=== PATIENT | male | born 1990 | race Caucasian/White ===

== ENCOUNTER 2022-03-18 20:18 | Emergency (ER) | payer BC, SELFPAY ==
[2022-03-18 20:20] VITALS: BP 152/98; PULSE 117; RESP 16; RESP 18; TEMP 37.1; O2SAT 100; BMI 30.1
--- NOTE | 2022-03-18 20:54 | EKG12_ITS ---
Test Reason : CP Blood Pressure : / mmHG Vent. Rate : 108 BPM Atrial Rate : 108 BPM P-R Int : 150 ms QRS Dur : 086 ms QT Int : 320 ms P-R-T Axes : 065 072 024 degrees QTc Int : 428 ms Sinus tachycardia Otherwise normal ECG Confirmed by ALIX QUEZADA, SARAH ([id number]), makeup editor CHARLY TAFOYA ([id number]) on 03/21/2022 11:10:17 AM Referred By: AUSTIN Confirmed By:SARAH THOMSON MD
[2022-03-18 21:09] LABS: Absolute Lymphocyte Count 1.51 X10^3/uL (0.83-4.51); Absolute Neutrophil Count 5.7 X10^3/uL (2.0-7.7); Basophil# 0.04 X10^3/uL; Basophil% 0.5 % (0-1); Hematocrit 46.3 % (40-54); Hemoglobin 15.4 g/dL (13.0-16.5); Lymphocyte # 1.51 X10^3/ul (0.83-4.51); Lymphocyte % 19.3 % (19-41); Mean Corp Hgb Conc 33.3 g/dL (32-36); Mean Corpuscular Hgb 28.7 pg (27.0-32.0); Mean Corpuscular Volume 86.2 fL (80-94); Mean Platelet Vol. 10.5 fl (6.2-12.0); Monocyte# 0.52 X10^3/uL; Monocyte% 6.6 % (0-10); NRBC Flagged by Analyzer 0 % (0-5); Neutrophil # 5.73 X10^3/uL (2.7-7.7); Neutrophil % 73.2 % (47-70); Platelet Count 273 K/mm3 (150-450); RBC Distribution Width CV 12.5 % (11.6-14.6); RBC Distribution Width SD 39.3 fl (35.1-43.9); Red Blood Count 5.37 M/mm3 (4.6-6.2); White Blood Count 7.8 K/mm3 (4.4-11.0)
--- NOTE | 2022-03-18 21:21 | RAD_ITS ---
STUDY: X-RAY CHEST REASON FOR EXAM: Male, 31 years old. Chest pain and pressure beginning 2 days ago. Pain began radiating to the shoulder. TECHNIQUE: PA and lateral views of the chest. COMPARISON: None. FINDINGS: The lungs are clear and expanded. There is no demonstrated pleural abnormality. Normal size heart. Normal mediastinum and cassie. Normal visualized pulmonary arteries. Normal visualized aortic arch and descending thoracic aorta. Normal visualized thoracic spine. Normal visualized ribs, clavicles, and shoulders. There is no demonstrated abnormality of the visualized soft tissue structures of the upper abdomen. RAD/Chest PA and Lateral IMPRESSION: No acute cardiopulmonary disease. Electronically Signed: Clive Chavez DO at 21:44 EDT ,
--- NOTE | 2022-03-18 21:24 | EDS_ITS ---
HPI History of Present Illness Chief Complaint: Chest Pain Detail of Chief Complaint: Midsternal chest pressure Informant: patient Onset/Context/Timing Onset: Days (Onset Monday) Activity at onset: sudden Timing: Continuous Quality: Positive for Pressure Location: Substernal Current Severity: Mild Maximum Severity: Moderate Worsened By: Nothing Relieved By: Nothing Associated Symptoms: Positive for Dyspnea (At onset not presently) and - (Today he complains of left shoulder pain.); Negative for Nausea, Vomiting, Diaphoresis, Cough, Fever, Lightheadedness, Acid Reflux or Palpitations Narrative Narrative: Patient is a 31-year-old male with no past medical history and no significant family history of coronary disease. He states his mother in her 60s due to heart disease complicated by alcoholism. She did not have an LA. He denies fever, chills night sweats. He denies history of VTE or risk factors. He denies leg pain, swelling discoloration. He denies history of hiatal hernia, reflux or peptic ulcer disease. He denies black or maroon-colored stool. He denies cough. He denies pleuritic chest pain. He denies upper respiratory infectious symptoms. Prior Similar Symptoms: No Recent Illness/Hospitalization: No CVD Risk Factors: Negative for Hypertension, Diabetes, Hypercholesterolemia, Family History 1' </=55 or Smoking PE Risk Factors: Negative for Recent Travel/Surgery, Recent Immobilization, Prior DVT or PE, Cancer or OCP + Smoking + >/=35 TAD Risk Factors: Negative for Marfan's Syndrome, Hypertension or Family History PFSH PFSH Medical History no medical history no medical history Allergy/AdvReac Type Severity Reaction Status Date / Time No Known Allergies Allergy Verified 03/18/22 20:32 Surgical History no surgical history no surgical history Social History (Updated 03/18/22 @ 21:[address] Fred Keita MD) Smoking Status: Never smoker alcohol intake: current alcohol intake frequency: a few times a month substance use type: does not use ROS ROS ED Constitutional Constitutional ED: Denies chills, fever(s), subjective, sweats or weight loss Eyes Eyes: Reports none; Denies blurry vision, change in vision or diplopia ENT ENT ED: Denies ear pain, rhinorrhea or sore throat Cardiovascular Cardiovascular: Reports as per HPI; Denies orthopnea or paroxysmal nocturnal dyspnea Respiratory/Chest Respiratory/Chest: Reports dyspnea; Denies cough, dyspnea on exertion, orthopnea, paroxysmal nocturnal dyspnea or sputum Gastrointestinal Gastrointestinal: Denies abdominal pain, constipation, diarrhea, melena, nausea or vomiting Genitourinary Genitourinary ED: Denies dysuria, hematuria or urinary frequency Musculoskeletal Musculoskeletal: Denies arthralgias, back pain, myalgias or neck pain Integumentary Denies Abrasions or rash Neurologic Neurologic: Denies headache(s), paresthesias or weakness Psychiatric Psychiatric: Reports anxiety; Denies depression Endocrine Endocrinology: Denies cold intolerance or heat intolerance Hematologic/Lymphatic Hematologic/Lymphatic: Denies easy bleeding or easy bruising EXAM Physical Exam Const Vital Signs: 03/18/22 20:20 03/18/22 20:20 03/18/22 20:29 Temperature 98.7 F 98.7 F Temperature Source Temporal Temporal Pulse Rate 117 H 117 H Respiratory Rate 18 16 Respiratory Effort Normal Blood Pressure 152/98 H 152/98 H Blood Pressure Mean 116 116 Pulse Ox 100 100 Oxygen Delivery Method Room Air Room Air Positive well nourished, well developed and obese; Negative for cachectic, contractures or unkempt General Appearance ED: well developed and NAD; Negative for unkempt, cachectic, contractures or pallor Nutritional Appearance: obese; Negative for cachectic HEENT Reports TM's clear and moist mucous membranes HEENT Narrative: Nares patent. Uvula midline. No deviation tongue or protrusion. No erythema or exudate. normocephalic and atraumatic Tympanic Membrane ED: Yes TM's clear Eyes PERRL and EOMs intact bilaterally General Eye ED: Negative for pale conjunctiva or scleral icterus Neck no lymphadenopathy, supple and no JVD Resp normal respiratory effort and clear to auscultation bilaterally Cardio regular rate, regular rhythm, S1 normal heart sound, S2 normal heart sound and no murmurs GI normal to inspection, nondistended, normoactive bowel sounds, soft to palpation, non-tender and non-distended Palpation: Negative for splenomegaly or mass Back/Spine no CVA tenderness Extremity normal to inspection Extremity Narrative: There is no asymmetry, swelling, discoloration, leg vein distention, palpable cords or tenderness along the distribution of the deep venous system. Neuro oriented x3, CN's II-XII intact bilaterally and no sensory deficits noted Sensorium / Orientation: awake and alert Psych mental status grossly normal Appearance: Negative for unkempt Skin no rashes or lesions noted and no wounds General Skin Exam: Negative for jaundice or pallor MDM MDM MDM Narrative Medical decision making narrative: Patient with atypical chest pain. Will obtain EKG to evaluate for any ischemic changes or dysrhythmia. CBC to rule out anemia. Basic metabolic panel to assess renal function and high-sensitivity troponin since he has had pain for approximately 48 hours. Chest x-ray was obtained to determine a pulmonary etiology for his chest discomfort as well as GI i.e. hiatal hernia. Lab Data Attestation: I reviewed the patient's lab results. Lab results narrative: CBC is unremarkable. Basic metabolic panel is unremarkable. Troponin with 48 hours of pain is less than 3 therefore no further testing is needed since negative predictive value is 100%. Labs: Laboratory Results - last 24 hr 03/18/22 03/18/22 03/18/22 20:40 20:40 20:40 WBC 7.8 RBC 5.37 Hgb 15.4 Hct 46.3 MCV 86.2 MCH 28.7 MCHC 33.3 RDW Std Deviation 39.3 RDW Coeff of Danny 12.5 Plt Count 273 MPV 10.5 Immature Gran % (Auto) 0.400 Neut % (Auto) 73.2 H Lymph % (Auto) 19.3 [place] % (Auto) 6.6 Eos % (Auto) 0.0 Baso % (Auto) 0.5 Absolute Neuts (auto) 5.7 Absolute Lymphs (auto) 1.51 Nucleated RBC % 0 Sodium 140 Potassium 3.5 Chloride 104 Carbon Dioxide 29.0 Anion Gap 7 BUN 17 Creatinine 1.16 Estim Creat Clear Calc 96.14 Est GFR (MDRD) Af Amer 95 Est GFR (MDRD) Non-Af 78 BUN/Creatinine Ratio 14.7 Glucose 107 H Calcium 10.4 H Troponin I High Sens Cancelled < 3 L Radiography Chest X-Ray - ED: 2 View and Read by ED Physician (Interpreted by me at 2138 as negative. Cardiac silhouette and size normal. Lung parenchyma normal. Perihilar region normal. Osseous structures normal.) Diagnostic Testing: Clinical Impression(s) from Imaging Studies Chest X-Ray 03/18/22 21:21 IMPRESSION: No acute cardiopulmonary disease. Electronically Signed: Clive Chavez DO at 21:44 EDT Reading Location ID and State: [address] [place] [address] Tel [phone], Service support , EKG Initial EKG: Interpretation: Sinus Tachycardia (Other than the tachycardia EKG is normal. Ventricular rate is 108. HI intervals 150 ms. QRS duration 86 ms. QT duration 320 ms. Lena normal.) Discharge Plan Triage Chief Complaint: Chest Pain ED Provider: Fred Keita Dx/Rx/DC Orders Clinical Impression: Chest pressure Primary Care Provider: Gagan Haq Referrals: Gagan Haq MD [Primary Care Provider] - 3-5 Days if not improving Disposition Disposition: Home, Self Care
[2022-03-18 21:28] LABS: Anion Gap 7 (5-15); BUN 17 mg/dL (7-18); BUN/Creat Ratio 14.7 RATIO (10-20); Calcium,Total 10.4 mg/dL (8.5-10.1); Chloride 104 mmol/L (98-107); Creatinine, Serum 1.16 mg/dL (0.70-1.30); EST Glomerular Filtration Rate 78 mL/min (>60); Est Glom Filt Rate - Afr Amer 95 mL/min (>60); Estimated Creatinine Clearance 96.14 ml/min; Glucose 107 mg/dL (74-106); Potassium 3.5 mmol/L (3.5-5.1); Sodium Level 140 mmol/L (136-145)
[2022-03-18 21:35] LABS: Troponin-I HS (w/2H Reflex) < 3 pg/mL (3.0-78.0)
[2022-03-18 21:52] VITALS: BP 136/80; PULSE 89; RESP 14; O2SAT 98
[2022-03-18 23:06] LABS: Reflex Troponin-HS? (from REC) Y
== END 2022-03-18 22:08 | disposition home or self-care (01) ==
PROVIDERS: Emergency Provider Emergency Medicine; PCP Family Medicine; Visit Provider Emergency Medicine
DX: R07.89 Other chest pain (principal); M25.512 Pain in left shoulder; E66.9 Obesity, unspecified
CPT/HCPCS: 71046; 80048; 84484; 85025; 93005; 99283; A4216

== ENCOUNTER → 2022-06-16 | Outpatient (CLI) | payer BC, SELFPAY ==
[2022-06-16 12:16] LABS: Absolute Lymphocyte Count 1.46 X10^3/uL (0.83-4.51); Absolute Neutrophil Count 4.1 X10^3/uL (2.0-7.7); Basophil# 0.04 X10^3/uL; Basophil% 0.7 % (0-1); Eosinophil# 0.04 X10^3/uL; Eosinophils% 0.7 % (0-5); Hematocrit 48.1 % (40-54); Lymphocyte # 1.46 X10^3/ul (0.83-4.51); Mean Corp Hgb Conc 33.3 g/dL (32-36); Mean Corpuscular Volume 87.1 fL (80-94); Mean Platelet Vol. 10.3 fl (6.2-12.0); Monocyte# 0.48 X10^3/uL; Monocyte% 7.9 % (0-10); NRBC Flagged by Analyzer 0 % (0-5); Neutrophil # 4.05 X10^3/uL (2.7-7.7); Neutrophil % 66.4 % (47-70); Platelet Count 256 K/mm3 (150-450); RBC Distribution Width CV 12.7 % (11.6-14.6); RBC Distribution Width SD 40.4 fl (35.1-43.9); Red Blood Count 5.52 M/mm3 (4.6-6.2); White Blood Count 6.1 K/mm3 (4.4-11.0)
[2022-06-16 12:48] LABS: Vitamin B12 497 pg/mL (211-911); Vitamin D,25 Hydroxy 23.8 ng/mL
[2022-06-16 13:04] LABS: ALB/GLOB Ratio 1.5 RATIO (0.9-2.4); AST(SGOT) 12 U/L (15-37); Alanine Aminotransfer ALT/SGPT 18 U/L (16-61); Albumin, Serum 4.6 g/dL (3.2-5.0); Alkaline Phosphatase 43 U/L (45-117); Anion Gap 8 (5-15); BUN 15 mg/dL (7-18); BUN/Creat Ratio 14.3 RATIO (10-20); Calcium,Total 9.5 mg/dL (8.5-10.1); Chloride 104 mmol/L (98-107); Creatinine, Serum 1.05 mg/dL (0.70-1.30); EST Glomerular Filtration Rate 88 mL/min (>60); Est Glom Filt Rate - Afr Amer 106 mL/min (>60); Globulin 3.1 g/dL (2.2-4.2); Glucose 99 mg/dL (74-106); Magnesium 2.2 mg/dL (1.6-2.6); Potassium 3.9 mmol/L (3.5-5.1); Protein, Total 7.7 g/dL (6.4-8.2); Sodium Level 140 mmol/L (136-145); Thyroid Stim Hormone (TSH) 1.05 uIU/mL (0.358-3.74)
== END | disposition home or self-care (01) ==
LOC: MFPLAB 11:06
PROVIDERS: Family Medicine; PCP Family Medicine; Referring Provider Family Medicine; Visit Provider Family Medicine
DX: R53.83 Other fatigue (principal); R03.0 Elevated blood-pressure reading, without diagnosis of hypertension
CPT/HCPCS: 36415; 80053; 82306; 82607; 83735; 84439; 84443; 85025

== ENCOUNTER → 2022-06-24 | Outpatient (CLI) | payer BC, SELFPAY ==
[2022-06-24 18:17] LABS: AST(SGOT) 8 U/L (15-37); Alanine Aminotransfer ALT/SGPT 16 U/L (16-61); Albumin, Serum 4.7 g/dL (3.2-5.0); Alkaline Phosphatase 45 U/L (45-117); Bilirubin, Direct 0.26 mg/dL (0.00-0.30); Globulin 3.2 g/dL (2.2-4.2); Protein, Total 7.9 g/dL (6.4-8.2)
== END | disposition home or self-care (01) ==
LOC: MFPLAB 13:54
PROVIDERS: PCP Family Medicine; Visit Provider Family Medicine
DX: R17 Unspecified jaundice (principal)
CPT/HCPCS: 36415; 80076

== ENCOUNTER → 2022-09-22 | Outpatient (CLI) | payer BC, SELFPAY ==
[2022-09-22 18:15] LABS: AST(SGOT) 12 U/L (15-37); Alanine Aminotransfer ALT/SGPT 23 U/L (16-61); Albumin, Serum 4.3 g/dL (3.2-5.0); Alkaline Phosphatase 45 U/L (45-117); Bilirubin, Direct 0.27 mg/dL (0.00-0.30); Cholesterol 247 mg/dL (200); Globulin 3.5 g/dL (2.2-4.2); High Density Lipoprotein 50 mg/dL; Protein, Total 7.8 g/dL (6.4-8.2); Triglycerides 123 mg/dL; Very Low Density Lipoprotein 25 mg/dL (5-40)
== END | disposition home or self-care (01) ==
PROVIDERS: PCP Family Medicine; Referring Provider Family Medicine; Visit Provider Internal Medicine Cardiovascular Disease
DX: E78.00 Pure hypercholesterolemia, unspecified (principal); R07.9 Chest pain, unspecified; Z82.49 Family history of ischemic heart disease and other diseases of the circulatory system
CPT/HCPCS: 36415; 80061; 80076

== ENCOUNTER → 2022-10-03 | Outpatient (CLI) | payer BC, SELFPAY ==
--- NOTE | 2022-10-03 12:12 | ECHOD_ITS ---
Reason For Study: CHEST PAIN Procedure This was a 2D Doppler, Color Flow transthoracic echocardiogram. Exam performed in department. Left Ventricle Normal LV size. Left ventricular systolic function is normal. The estimated ejection fraction is 60 %. Stage 1 diastolic dysfunction. No regional wall motion abnormalities noted. Right Ventricle Normal RV size. Normal systolic function. Atria Normal left atrium. Normal right atrium. Mitral Valve Normal mitral valve. Tricuspid Valve Normal tricuspid valve. Aortic Valve Normal aortic valve. Trisinus/trileaflet aortic valve. Pulmonic Valve Normal pulmonic valve. Great Vessels Normal aortic root. The pulmonary artery is normal size. Normal inferior vena cava. Pericardium/Pleural No pericardial effusion. MMode/2D Measurements & Calculations LVIDd: 4.8 cm IVSd: 0.67 cm Ao root diam: 2.9 cm LVIDs: 3.0 cm LVPWd: 0.74 cm RVDd: 3.6 cm FS: 37.1 % LAV(MOD-bp): 28.2 ml LVAd ap4: 31.1 cm2 SV(MOD-sp4): 57.1 ml LAV(MOD-bp) Indexed: 13.5 ml/m2 LVLd ap4: 8.9 cm LAV(MOD-sp2): 28.9 ml EDV(MOD-sp4): 88.3 ml LAV(MOD-sp4): 25.2 ml EDV(sp4-el): 92.2 ml LVAs ap4: 15.8 cm2 LVLs ap4: 7.0 cm ESV(MOD-sp4): 31.2 ml ESV(sp4-el): 30.4 ml EF(MOD-sp4): 64.7 % EF(sp4-el): 67.1 % SV(sp4-el): 61.8 ml LA A4 area: 11.8 cm2 LA dimension(2D): 3.3 cm RA A4 area: 11.3 cm2 Time Measurements MV dec time: 0.12 sec Doppler Measurements & Calculations MV E max ck: 98.9 cm/sec Lat Peak E' Ck: 22.3 cm/sec Med Peak E' Ck: 15.4 cm/sec MV A max ck: 101.9 cm/sec E/E' lat: 4.4 E/E' med: 6.4 MV E/A: 0.97 Ao V2 max: 147.6 cm/sec LV V1 max: 136.4 cm/sec PA V2 max: 135.3 cm/sec Ao max P.7 mmHg LV V1 max P.4 mmHg ECHO/Echo Complete Interpretation Summary Normal LV size. Left ventricular systolic function is normal. The estimated ejection fraction is 60 %. Stage 1 diastolic dysfunction. Ordering Physician: Gagan Arango Referring Physician: NASH RONQUILLO Performed By: Amelia Olson, RDCS
--- NOTE | 2022-10-03 17:48 | STRESSREP ---
Stress Test Report Exercise stress test. 32-year-old man with a history of chest pain Stress protocol: Resting EKG demonstrates normal sinus rhythm with a rate of 70 bpm resting blood pressure is 132/82 mmHg. The patient exercised according to the regular Leonard protocol for a total duration of 12 minutes and 30 seconds completing 30 seconds into stage V of the Leonard protocol and attaining a maximum heart rate of 200 bpm which was 105% of maximum predicted heart rate; the maximum workload was 15.3 metabolic equivalents. At rest there were no ST or T wave changes noted to suggest ischemia and at peak exercise upsloping ST changes only were noted which did not meet the criteria for ischemia. No clinical angina was noted the test was terminated due to the target heart rate being achieved/fatigue. The peak blood pressure was 170/80 mmHg. Rate-pressure product was 30,100. Conclusion: Exercise stress test with no EKG criteria for ischemia at a high workload. Excellent functional aerobic capacity.
== END | disposition home or self-care (01) ==
PROVIDERS: PCP Family Medicine; Visit Provider Internal Medicine Cardiovascular Disease
DX: R07.9 Chest pain, unspecified (principal); Z82.49 Family history of ischemic heart disease and other diseases of the circulatory system
CPT/HCPCS: 93017; 93306

== ENCOUNTER → 2023-01-11 | Outpatient (CLI) | payer BC, SELFPAY ==
[2023-01-11 17:46] LABS: Absolute Lymphocyte Count 1.69 X10^3/uL (0.83-4.51); Absolute Neutrophil Count 4.1 X10^3/uL (2.0-7.7); Basophil# 0.07 X10^3/uL; Basophil% 1.1 % (0-1); Eosinophil# 0.06 X10^3/uL; Eosinophils% 0.9 % (0-5); Hematocrit 44.9 % (40-54); Hemoglobin 15.1 g/dL (13.0-16.5); Lymphocyte # 1.69 X10^3/ul (0.83-4.51); Lymphocyte % 26.4 % (19-41); Mean Corp Hgb Conc 33.6 g/dL (32-36); Mean Corpuscular Hgb 28.8 pg (27.0-32.0); Mean Corpuscular Volume 85.7 fL (80-94); Mean Platelet Vol. 10.8 fl (6.2-12.0); Monocyte# 0.49 X10^3/uL; Monocyte% 7.7 % (0-10); NRBC Flagged by Analyzer 0 % (0-5); Neutrophil # 4.06 X10^3/uL (2.7-7.7); Neutrophil % 63.6 % (47-70); Platelet Count 257 K/mm3 (150-450); RBC Distribution Width CV 12.5 % (11.6-14.6); RBC Distribution Width SD 38.9 fl (35.1-43.9); Red Blood Count 5.24 M/mm3 (4.6-6.2); White Blood Count 6.4 K/mm3 (4.4-11.0)
[2023-01-11 18:20] LABS: ALB/GLOB Ratio 1.1 RATIO (0.9-2.4); AST(SGOT) 15 U/L (15-37); Alanine Aminotransfer ALT/SGPT 32 U/L (16-61); Albumin, Serum 4.2 g/dL (3.2-5.0); Alkaline Phosphatase 53 U/L (45-117); Anion Gap 6 (5-15); BUN 17 mg/dL (7-18); BUN/Creat Ratio 12.1 RATIO (10-20); Calcium,Total 9.2 mg/dL (8.5-10.1); Chloride 108 mmol/L (98-107); Cholesterol 175 mg/dL (200); EST Glomerular Filtration Rate 63 mL/min (>60); Est Glom Filt Rate - Afr Amer 76 mL/min (>60); Globulin 3.7 g/dL (2.2-4.2); Glucose 79 mg/dL (74-106); High Density Lipoprotein 43 mg/dL; Potassium 3.7 mmol/L (3.5-5.1); Protein, Total 7.9 g/dL (6.4-8.2); Sodium Level 141 mmol/L (136-145); Triglycerides 307 mg/dL; Very Low Density Lipoprotein 61 mg/dL (5-40)
== END | disposition home or self-care (01) ==
LOC: MFPLAB 15:37
PROVIDERS: PCP Family Medicine; Visit Provider Family Medicine
DX: E78.5 Hyperlipidemia, unspecified (principal)
CPT/HCPCS: 36415; 80053; 80061; 85025

== ENCOUNTER → 2023-02-09 | Outpatient (CLI) | payer BC, SELFPAY ==
[2023-02-09 18:18] LABS: Absolute Neutrophil Count 4.9 X10^3/uL (2.0-7.7); Basophil# 0.06 X10^3/uL; Basophil% 0.9 % (0-1); Eosinophil# 0.07 X10^3/uL; Hematocrit 45.3 % (40-54); Hemoglobin 15.2 g/dL (13.0-16.5); Lymphocyte % 21.3 % (19-41); Mean Corp Hgb Conc 33.6 g/dL (32-36); Mean Corpuscular Hgb 28.8 pg (27.0-32.0); Mean Platelet Vol. 12.2 fl (6.2-12.0); Monocyte# 0.51 X10^3/uL; Monocyte% 7.3 % (0-10); NRBC Flagged by Analyzer 0 % (0-5); Neutrophil # 4.87 X10^3/uL (2.7-7.7); Neutrophil % 69.2 % (47-70); Platelet Count 277 K/mm3 (150-450); RBC Distribution Width CV 12.7 % (11.6-14.6); RBC Distribution Width SD 39.9 fl (35.1-43.9); Red Blood Count 5.27 M/mm3 (4.6-6.2)
[2023-02-09 18:49] LABS: ALB/GLOB Ratio 1.1 RATIO (0.9-2.4); AST(SGOT) 16 U/L (15-37); Alanine Aminotransfer ALT/SGPT 32 U/L (16-61); Albumin, Serum 4.2 g/dL (3.2-5.0); Alkaline Phosphatase 52 U/L (45-117); Anion Gap 7 (5-15); BUN 14 mg/dL (7-18); BUN/Creat Ratio 13.3 RATIO (10-20); Calcium,Total 9.1 mg/dL (8.5-10.1); Chloride 108 mmol/L (98-107); Cholesterol 153 mg/dL (200); Creatinine, Serum 1.05 mg/dL (0.70-1.30); EST Glomerular Filtration Rate 87 mL/min (>60); Est Glom Filt Rate - Afr Amer 106 mL/min (>60); Globulin 3.7 g/dL (2.2-4.2); Glucose 101 mg/dL (74-106); High Density Lipoprotein 44 mg/dL; Potassium 3.8 mmol/L (3.5-5.1); Protein, Total 7.9 g/dL (6.4-8.2); Sodium Level 141 mmol/L (136-145); Triglycerides 382 mg/dL; Very Low Density Lipoprotein 76 mg/dL (5-40)
== END | disposition home or self-care (01) ==
LOC: MFPLAB 15:30
PROVIDERS: PCP Family Medicine; Visit Provider Family Medicine
DX: E78.5 Hyperlipidemia, unspecified (principal)
CPT/HCPCS: 36415; 80053; 80061; 85025

== ENCOUNTER → 2023-07-12 | Outpatient (CLI) | payer BC, SELFPAY ==
--- NOTE | 2023-07-12 16:56 | RAD_ITS ---
STUDY: X-RAY - LUMBAR SPINE REASON FOR EXAM: Male, 32 years old. LOW BACK PAIN TECHNIQUE: 4 view(s) of the lumbar spine were obtained. COMPARISON: None FINDINGS: Normal lumbar lordosis. There is no substantial scoliosis. There is a normal alignment of the vertebrae. Normal vertebral bodies and endplates. Normal disc space heights. There is multilevel facet hypertrophy in the lumbar spine. The soft tissue structures are unremarkable. RAD/L/S Spine Min 4 Views IMPRESSION: Degenerative changes of the spine, as detailed above. MRI may be useful. Electronically Signed: Dionicio Mccloud MD at 19:13 EST ,
--- OUTSIDE RECORDS SUMMARY | 2023-07-12 17:13 | XMS RPT_ITS | CCD ---
Author Name Unknown Address [address] [facility] [address] [place] [address] Organization [facility] Care Team Providers Care Coat Maker Name Role Phone Nash Ronquillo Primary Care Provider [phone] NASH RONQUILLO Primary Care Unavailabl e NASH RONQUILLO Primary Care Unavailabl e Medications Current Medications Medication Drug Class(es) Dates Sig (Normalized) Sig (Original) amoxicillin 875 mg oral tablet (1 source) Penicillin-class Antibacterial Start: 12-16-2022 End: 12-23-2022 take 1 tablet by mouth twice daily amoxicillin (AMOXIL) 875 mg tablet Take 1 tablet by mouth twice daily for 7 days. 14 tablet 0 12/16/2022 12/23/2022 Active Completed/Discontinued Medications Medication Drug Class(es) Dates Sig (Normalized) Sig (Original) atorvastatin 10 mg oral tablet (1 source) HMG-CoA Reductase Inhibitor Start: 11-20-2022 take 1 tablet by mouth once daily atorvastatin (LIPITOR) 10 mg tablet Take 10 mg by mouth once daily. 0 11/20/2022 Active Problems Active Problems Problem Classification Problem Date Documented Da te Episodic/Chronic Otitis media and related conditions (1 source) Acute right otitis media; Translations: [Otitis media, unspecified, right ear] Episodic Past or Other Problems Problem Classification Problem Date Documented Da te Episodic/Chronic Skin and subcutaneous tissue infections (1 source) Pilonidal cyst with abscess; Translations: [Pilonidal cyst with abscess] Onset: 07-17-2009 07-17-2009 Episodic Results Test Name Value Interpretation Reference Range Facil ity Vital Signs Date Time Vital Sign Value Performing Clinician Shashi croft 12-23-2022 13:21-0400 Body temperature 98.4 [degF] Natividad Brody APRN.[employer] Work Phone: [facility] 12-23-2022 13:21-0400 Body weight 95.44 kg Natividad Brody APRN.[employer] Work Phone: [facility] 12-23-2022 13:21-0400 Diastolic blood pressure 96 mm[Hg] Natividad Brody APRN.[employer] Work Phone: [facility] 12-23-2022 13:21-0400 Heart rate 110 /min Natividad Brody APRN.[employer] Work Phone: [facility] 12-23-2022 13:21-0400 Respiratory rate 18 /min Natividad Brody APRN.[employer] Work Phone: [facility] 12-23-2022 13:21-0400 SaO2% (BldA) [Mass fraction] 99 % Natividad Brody APRN.[employer] Work Phone: [facility] 12-23-2022 13:21-0400 Systolic blood pressure 146 mm[Hg] Natividad Brody APRN.[employer] Work Phone: [facility] Encounters Encounter Date Encounter Type Care Provider Facility Start: 12-23-2022 End: 12-23-2022 [facility] Start: 12-23-2022 End: 12-23-2022 Patient encounter procedure Natividad Brody APRN.[employer] Work Phone: [facility] Plan of Treatment Date Care Activity Detail Author Start: 03-10-2023 Influenza vaccination INFLUENZA (Sea son Ended) [facility] Start: 07-10-2022 DEPRESSION ASSESSMENT DEPRESSION ASS ESSMENT [facility] Start: 07-16-2019 Urine microalbumin profile DTAP,TDAP ,TD (6 - Tdap) [facility] Start: 11-05-2009 HEPATITIS B (3 of 3 - 3-dose series) HEPATITIS B (3 of 3 - 3-dose series) [facility] Start: 2009 HEPATITIS C SCREENING HEPATITIS C SC NARDA [facility] Start: 2009 HIV SCREENING HIV SCREENING [facility] Start: 02-04-1992 COVID-19 VACCINE (#1) COVID-19 VACCI NE (#1) [facility] Immunizations Immunization Date Immunization Notes Care Provider Sergei olivera 08-24-2009 hepatitis B vaccine, pediatric or pediatric/adolescent dosage Natividad Brody APRN.[facility] Work Phone: [facility] 08-24-2009 hepatitis B vaccine, unspecified formulation Natividad Brody APRN.[employer] Work Phone: [facility] 07-16-2009 diphtheria, tetanus toxoids and acellular pertussis vaccine Natividad Brody APRN.[employer] Work Phone: [facility] 07-16-2009 hepatitis B vaccine, pediatric or pediatric/adolescent dosage Natividad Brody APRN.[facility] Work Phone: [facility] 02-23-2005 measles, mumps and rubella virus vaccine Natividad Brody APRN.[facility] Work Phone: [facility] Work Phone: 03-23-1993 diphtheria, tetanus toxoids and pertussis vaccine Natividad Brody APRN.[employer] Work Phone: [facility] Work Phone: 02-20-1993 trivalent poliovirus vaccine, live, oral Natividad Brody APRN.[facility] Work Phone: [facility] Work Phone: 11-19-1992 haemophilus influenz ae type b vaccine, HbOC conjugate Natividad Brody APRN.[facility] Work Phone: [facility] Work Phone: 11-19-1992 measles, mumps and rubella virus vaccine Natividad Brody APRN.[employer] Work Phone: [facility] Work Phone: 04-24-1992 diphtheria, tetanus toxoids and pertussis vaccine Natividad Brody APRN.[employer] Work Phone: [facility] Work Phone: 04-24-1992 haemophilus influenz ae type b vaccine, HbOC conjugate Natividad Brody APRN.[facility] Work Phone: [facility] Work Phone: 01-31-1992 diphtheria, tetanus toxoids and pertussis vaccine Natividad James [employer]CH[employer] [place] Work Phone: [facility] Work Phone: 01-31-1992 haemophilus influenz ae type b vaccine, HbOC conjugate Natividad Ronn [employer] [place] Work Phone: [facility] Work Phone: 01-31-1992 trivalent poliovirus vaccine, live, oral Natividad Ronn [employer]CH[employer] [place].[employer] Work Phone: [facility] Work Phone: 1991 diphtheria, tetanus toxoids and pertussis vaccine Natividad Ronn MECH[employer]EL[employer] [place] Work Phone: [facility] Work Phone: 1991 haemophilus influenz ae type b vaccine, HbOC conjugate Natividad James MECHANICAL DEVEL[employer] [place] Work Phone: [facility] Work Phone: 1991 trivalent poliovirus vaccine, live, oral Natividad Ronn [employer]CHANICAL [employer]EL[employer] [place] Work Phone: [facility] Work Phone: Payers Date Payer Category Payer Unknown [employer] PPO OOS [id number] 2021-Present [phone] [address] [place] [address] PPO [id number] 2021 Unknown [id number] Social History Date Type Detail Facility Start: 12-16-2022 Tobacco smoking stat us N[employer] Never smoked tobacco [facility] Start: 12-16-2022 Tobacco use and exposure Smoke less tobacco non-user [facility] Start: 12-23-2022 Alcohol intake Current non-dr hand ii thermal cutter of alcohol (finding) [facility] Start: 1991 Sex Assigned At Not on file [facility] Progress note 12-23-2022 Note Date & Type Note Facility 06-16-2023 Note HNO ID: [id number] Author: Natividad Brody APRN.[employer] Service: ? Author Type: Nurse Practitioner Type: Progress Notes Filed: 12/23/2022 1:31 PM Note Text: CC: Patient presents with: Ear Pain: R ear clogged x3 weeks, cough and drainage x3 weeks HPI: Alexandrea Barton is a 32 year old male who presents to the office with complaint of cough, nonproductive, sinus symptoms, and ear symptoms for 3 weeks. Symptoms are staying the same. Associated symptoms includes nasal congestion and ear pain. Denies fever, nausea, vomiting , and diarrhea. Treatments tried include patient already took amoxicillin for 7 days with minor relief of symptoms. Sick contacts: unknown. History of asthma, frequent episodes of bronchitis, chronic bronchitis, bronchiectasis or COPD: No Smoker: No Seasonal/environmental allergies: No The ROS is otherwise negative. The patient's pmh, medications, allergies, and past visits are reviewed. PHYSICAL EXAM: BP 146/96 Pulse 110 Temp 36.9 ?C (98.4 ?F) Resp 18 Wt 95.4 kg (210 lb 6.4 oz) SpO2 99% General appearance: alert, cooperative, pleasant, in no acute distress Head: Normocephalic Eyes: EOM's intact, conjunctiva pink and moist, no icterus, sclera white, non-injected Ears: Right ear: External ear/canal- Normal, TM - erythematous, bulging. Left ear: External ear/canal- Normal, TM - clear with good landmarks Oropharynx:moist without lesions, No erythema, exudates or tonsillar hypertrophy. Heart: Negative. RRR without obvious murmur, gallop, or rubs. No ectopy. Lungs: clear to auscultation, without rales or wheeze, good air exchange PAST MEDICAL HISTORY Diagnosis Date Pilonidal cyst No past surgical history on file. ALLERGIES Patient has no known allergies. MEDICATIONS cefdinir (OMNICEF) 300 mg capsule Take 1 capsule by mouth twice daily for 7 days. atorvastatin (LIPITOR) 10 mg tablet Take 10 mg by mouth once daily. amoxicillin (AMOXIL) 875 mg tablet Take 1 tablet by mouth twice daily for 7 days. (Patient not taking: Reported on 12/23/2022) FAMILY HISTORY Problem Relation Age of Onset Diabetes Paternal Grandfather Diabetes Unknown great GF Hypertension Paternal Grandfather Lipids Paternal Grandfather Social History Tobacco Use Smoking status: Never Smokeless tobacco: Never Substance Use Topics Alcohol use: No Drug use: No ASSESSMENT/PLAN: 1. Acute otitis media, right - ICD9: 382.9, ICD10: H66.91 - CEFDINIR 300 MG CAPSULE Prescription instructions reviewed with patient as applicable. Potential red flag symptoms discussed with the patient. Reviewed appropriate action plan to take if red flag symptoms occur. Patient agreeable to treatment plan. We will follow-up if signs and symptoms persist. Natividad Brody APRN.[facility] History of Present illness Narrative 12-23-2022 Natividad Brody APRN.[employer] - 12/23/2022 1:28 PM EDT Note Date & Type Note Facility 12-23-2022 History of Presen t illness Narrative CC: Patient presents with: Ear Pain: R ear clogged x3 weeks, cough and drainage x3 weeks HPI: Alexandrea Barton is a 32 year old male who presents to the office with complaint of cough, nonproductive, sinus symptoms, and ear symptoms for 3 weeks. Symptoms are staying the same. Associated symptoms includes nasal congestion and ear pain. Denies fever, nausea, vomiting , and diarrhea. Treatments tried include patient already took amoxicillin for 7 days with minor relief of symptoms. Sick contacts: unknown. History of asthma, frequent episodes of bronchitis, chronic bronchitis, bronchiectasis or COPD: No Smoker: No Seasonal/environmental allergies: No The ROS is otherwise negative. The patient's pmh, medications, allergies, and past visits are reviewed. PHYSICAL EXAM: BP 146/96 Pulse 110 Temp 36.9 C (98.4 F) Resp 18 Wt 95.4 kg (210 lb 6.4 oz) SpO2 99% General appearance: alert, cooperative, pleasant, in no acute distress Head: Normocephalic Eyes: EOM's intact, conjunctiva pink and moist, no icterus, sclera white, non-injected Ears: Right ear: External ear/canal- Normal, TM - erythematous, bulging. Left ear: External ear/canal- Normal, TM - clear with good landmarks Oropharynx:moist without lesions, No erythema, exudates or tonsillar hypertrophy. Heart: Negative. RRR without obvious murmur, gallop, or rubs. No ectopy. Lungs: clear to auscultation, without rales or wheeze, good air exchange PAST MEDICAL HISTORY Diagnosis Date Pilonidal cyst No past surgical history on file. ALLERGIES Patient has no known allergies. MEDICATIONS cefdinir (OMNICEF) 300 mg capsule Take 1 capsule by mouth twice daily for 7 days. atorvastatin (LIPITOR) 10 mg tablet Take 10 mg by mouth once daily. amoxicillin (AMOXIL) 875 mg tablet Take 1 tablet by mouth twice daily for 7 days. (Patient not taking: Reported on 12/23/2022) FAMILY HISTORY Problem Relation Age of Onset Diabetes Paternal Grandfather Diabetes Unknown great GF Hypertension Paternal Grandfather Lipids Paternal Grandfather Social History Tobacco Use Smoking status: Never Smokeless tobacco: Never Substance Use Topics Alcohol use: No Drug use: No ASSESSMENT/PLAN: 1. Acute otitis media, right - ICD9: 382.9, ICD10: H66.91 - CEFDINIR 300 MG CAPSULE Prescription instructions reviewed with patient as applicable. Potential red flag symptoms discussed with the patient. Reviewed appropriate action plan to take if red flag symptoms occur. Patient agreeable to treatment plan. We will follow-up if signs and symptoms persist. Natividad Brody APRN.[facility] documented in this encounter [facility] Progress note 12-16-2022 Note Date & Type Note Facility 12-16-2022 Note HNO ID: [id number] Author: DARIEL George Service: ? Author Type: Physician Cooper Helper Type: Progress Notes Filed: 12/16/2022 3:46 PM Note Text: This note was created using [employer]riter. Subjective Alexandrea Barton is a 32 year old male. HPI 32-year-old male presents for right ear pain. Patient states that he has been having right ear pain for the past 6 days. He was just on a flight to [place] and felt like his ear needed to pop. He did swim somewhat when he was in [place]. He states that he now has a lot of pressure in his right ear. He states that he recently got over sinus congestion. He denies any fevers, vomiting, diarrhea. No other complaints. PAST MEDICAL HISTORY Diagnosis Date Pilonidal cyst No past surgical history on file. ALLERGIES Patient has no known allergies. MEDICATIONS atorvastatin (LIPITOR) 10 mg tablet Take 10 mg by mouth once daily. amoxicillin (AMOXIL) 875 mg tablet Take 1 tablet by mouth twice daily for 7 days. FAMILY HISTORY Problem Relation Age of Onset Diabetes Paternal Grandfather Diabetes Unknown great GF Hypertension Paternal Grandfather Lipids Paternal Grandfather Social History Tobacco Use Smoking status: Never Smokeless tobacco: Never Substance Use Topics Alcohol use: No Drug use: No Review of Systems Constitutional: Negative for chills and fever. HENT: Positive for ear pain. Negative for congestion, ear discharge and sore throat. Respiratory: Negative for cough and shortness of breath. Gastrointestinal: Negative for diarrhea and vomiting. Objective BP 134/78 Pulse 99 Temp 36.7 ?C (98.1 ?F) (Tympanic) Resp 18 Wt 94.7 kg (208 lb 12.8 oz) SpO2 97% Physical Exam Vitals and nursing note reviewed. Constitutional: General: He is not in acute distress. Appearance: Normal appearance. He is not toxic-appearing. HENT: Right Ear: A middle ear effusion is present. Tympanic membrane is erythematous. Nose: Nose normal. Mouth/Throat: Mouth: Mucous membranes are moist. Eyes: Conjunctiva/sclera: Conjunctivae normal. Cardiovascular: Rate and Rhythm: Normal rate and regular rhythm. Pulmonary: Effort: Pulmonary effort is normal. Breath sounds: Normal breath sounds. Skin: General: Skin is warm and dry. Neurological: Mental Status: He is alert. Assessment and Plan ASSESSMENT/PLAN: 1. Acute otitis media, right - ICD9: 382.9, ICD10: H66.91 - Will begin treatment with Amoxicillin for 7 days - Supportive care with plenty of fluids, rest, and analgesia prn. - Flonase Diagnosis and treatment plan were discussed and questions were answered to the patient's satisfaction. Pt acknowledged understanding of concepts and follow up plan. Specific signs and symptoms that would indicate the need for higher level of care were discussed in detail warranting prompt ER evaluation. DARIEL George [facility] Evaluation note Note Date & Type Note Facility documented in this encounter [facility] Summary Purpose Family History No Family History Records Found Advance Directives No Advanced Directives Records Found Additional Source Comments Source Comments (unrecognize d section and content) In the event this informatio n is protected by the Federal Confidentiality of Alcohol and Drug Abuse Patient Records regulations: The Federal rules restrict any use of the information to criminally investigate or prosecute any alcohol or drug abuse patient.[facility] Reason for Visit (unrecogniz ed section and content) Care Teams (unrecognized sec tion and content) (unrecognized sect ion and content) No Status Records Found INFORMATION SOURCE (unrecogn ized section and content) FOR RECORDS PERTAINING TO PATIENTS WHO ARE OR HAVE BEEN ENROLLED IN A CHEMICAL DEPENDENCY/SUBSTANCEABUSE PROGRAM, SOME INFORMATION MAY BE OMITTED. This clinical summary was aggregated from multiple sources. Caution should be exercised in using it in the provision of clinical care. This summary normalizes information from multiple sources, and as a consequence, information in this document may materially change the coding, format and clinical context of patient data. In addition, data may be omitted in some cases. CLINICAL DECISIONS SHOULD BE BASED ON THE PRIMARY CLINICAL RECORDS. [employer] provides no warranty or guarantee of the accuracy or completeness of information in this document.
== END | disposition home or self-care (01) ==
PROVIDERS: PCP Family Medicine; Referring Provider Family Medicine; Visit Provider Family Medicine
DX: M54.50 Low back pain, unspecified (principal)
CPT/HCPCS: 72110

== ENCOUNTER → 2023-07-25 | Outpatient (CLI) | payer BC, SELFPAY ==
--- OUTSIDE RECORDS SUMMARY | 2023-07-25 17:19 | XMS RPT_ITS | CCD ---
Author Name Unknown Address [address] [facility] [address] [place] [address] Organization [facility] Care Team Providers Care Power Cleaner Operator Name Role Phone Nash Ronquillo Primary Care Provider NASH RONQUILLO Primary Care Unavailabl e NASH [...] 13:21-0400 Body temperature 98.4 [degF] Natividad Brody APRN.SEWING MACHINE OPERATOR Work Phone: [facility] 12-23-2022 13:21-0400 Body weight 95.44 kg Natividad Brody APRN.SEWING MACHINE OPERATOR Work Phone: [facility] 12-23-2022 13:21-0400 Diastolic blood pressure 96 mm[Hg] Natividad Brody APRN.SEWING MACHINE OPERATOR Work Phone: [facility] 12-23-2022 13:21-0400 Heart rate 110 /min Natividad Brody APRN.SEWING MACHINE OPERATOR Work Phone: [facility] 12-23-2022 13:21-0400 Respiratory rate 18 /min Natividad Brody APRN.SEWING MACHINE OPERATOR Work Phone: [facility] 12-23-2022 13:21-0400 SaO2% (BldA) [Mass fraction] 99 % Natividad Brody APRN.SEWING MACHINE OPERATOR Work Phone: [facility] 12-23-2022 13:21-0400 Systolic blood pressure 146 mm[Hg] Natividad Brody APRN.SEWING MACHINE OPERATOR Work Phone: [facility] Encounters Encounter Date Encounter Type Care Provider Facility Start: 12-23-2022 End: 12-23-2022 [facility] Start: 12-23-2022 End: 12-23-2022 Patient encounter procedure Natividad Brody APRN.SEWING MACHINE OPERATOR Work Phone: [facility] Plan of Treatment Date Care Activity Detail Author Start: 03-10-2023 Influenza vaccination INFLUENZA (Sea son Ended) [facility] Start: 07-10-2022 DEPRESSION ASSESSMENT DEPRESSION ASS ESSMENT [facility] Start: 07-16-2019 Urine microalbumin profile DTAP,TDAP ,TD (6 - Tdap) [facility] Start: 11-05-2009 HEPATITIS B (3 of 3 - 3-dose series) HEPATITIS B (3 of 3 - 3-dose series) [facility] Start: 2009 HEPATITIS C SCREENING HEPATITIS C SC NARDA [facility] Start: 2009 HIV SCREENING HIV SCREENING [facility] Start: 02-04-1992 COVID-19 VACCINE (#1) COVID-19 VACCI NE (#1) [facility] Immunizations Immunization Date Immunization Notes Care Provider Sergei olivera 08-24-2009 hepatitis B vaccine, pediatric or pediatric/adolescent dosage Natividad Brody APRN.[facility] Work Phone: [facility] 08-24-2009 hepatitis B vaccine, unspecified formulation Natividad Brody APRN.SEWING MACHINE OPERATOR Work Phone: [facility] 07-16-2009 diphtheria, tetanus toxoids and acellular pertussis vaccine Natividad Brody APRN.SEWING MACHINE OPERATOR Work Phone: [facility] 07-16-2009 hepatitis B vaccine, pediatric or pediatric/adolescent dosage Natividad Brody APRN.[facility] Work Phone: [facility] 02-23-2005 measles, mumps and rubella virus vaccine Natividad Brody APRN.[facility] Work Phone: [facility] Work Phone: 03-23-1993 diphtheria, tetanus toxoids and pertussis vaccine Natividad Brody APRN.SEWING MACHINE OPERATOR Work Phone: [facility] Work Phone: 02-20-1993 trivalent poliovirus vaccine, live, oral Natividad Brody APRN.[facility] Work Phone: [facility] Work Phone: 11-19-1992 haemophilus influenz ae type b vaccine, HbOC conjugate Natividad Brody APRN.[facility] Work Phone: [facility] Work Phone: 11-19-1992 measles, mumps and rubella virus vaccine Natividad Brody APRN.SEWING MACHINE OPERATOR Work Phone: [facility] Work Phone: 04-24-1992 diphtheria, tetanus toxoids and pertussis vaccine Natividad Brody APRN.SEWING MACHINE OPERATOR Work Phone: [facility] Work Phone: 04-24-1992 haemophilus influenz ae type b vaccine, HbOC conjugate Natividad Brody APRN.[facility] Work Phone: [facility] Work Phone: 01-31-1992 diphtheria, tetanus toxoids and pertussis vaccine Natividad James SQL ETL DEVELOPER.[facility] Work Phone: [facility] Work Phone: 01-31-1992 haemophilus influenz ae type b vaccine, HbOC conjugate Natividad Ronn SQL ETL DEVELOPER.[facility] Work Phone: [facility] Work Phone: 01-31-1992 trivalent poliovirus vaccine, live, oral Natividad Ronn SQL ETL DEVELOPER.SEWING MACHINE OPERATOR Work Phone: [facility] Work Phone: 1991 diphtheria, tetanus toxoids and pertussis vaccine Natividad Ronn SQL ETL DEVELOPER.[facility] Work Phone: [facility] Work Phone: 1991 haemophilus influenz ae type b vaccine, HbOC conjugate Natividad James SQL ETL DEVELOPER.[facility] Work Phone: [facility] Work Phone: 1991 trivalent poliovirus vaccine, live, oral Natividad Ronn SQL ETL DEVELOPER.[facility] Work Phone: [facility] Work Phone: Payers Date Payer Category Payer Unknown [employer]UE C[employer] PPO OOS [id number] 2021-Present [phone] [address] [place] [address] PPO [id number] 2021 Unknown [id number] Social History Date Type Detail Facility Start: 12-16-2022 Tobacco smoking stat us NCIS Never smoked tobacco [facility] Start: 12-16-2022 Tobacco use and exposure Smoke less tobacco non-user [facility] Start: 12-23-2022 Alcohol intake Current non-dr power wheelchair mechanic of alcohol (finding) [facility] Start: 1990 Sex Assigned At Not on file [facility] Progress note 12-23-2022 Note Date & Type Note Facility 06-16-2023 Note HNO ID: [id number] Author: Natividad Brody APRN.SEWING MACHINE OPERATOR Service: ? Author Type: Nurse Practitioner Type: [...] if signs and symptoms persist. Natividad Brody APRN.[facility] History of Present illness Narrative 12-23-2022 Natividad Brody APRN.SEWING MACHINE OPERATOR - 12/23/2022 1:28 PM EDT Note Date [...] Natividad Brody APRN.[facility] documented in this encounter [facility] Progress note 12-16-2022 Note Date & Type Note Facility 12-16-2022 Note HNO ID: [id number] Author: DARIEL George Service: ? Author Type: Physician Office Service Coordinator Type: Progress Notes Filed: 12/16/2022 3:46 PM Note Text: This note was created using [employer]. Subjective Alexandrea Barton is a 32 year old male. HPI 32-year-old male presents for right ear pain. Patient states that he has been having right ear pain for the past 6 days. He was just on a flight to [place] and felt like his ear needed to pop. He did swim somewhat when he was in [place]. He states that he now has a [...] detail warranting prompt ER evaluation. DARIEL George [facility] Evaluation note Note Date & Type Note Facility documented in this encounter [facility] Summary Purpose Family History No Family History [...] or prosecute any alcohol or drug abuse patient.[facility] Reason for Visit (unrecogniz ed section and [...] BE BASED ON THE PRIMARY CLINICAL RECORDS. [employer] provides no warranty or guarantee of the accuracy or completeness of information in this document.
[2023-07-25 17:31] LABS: Absolute Neutrophil Count 5.1 X10^3/uL (2.0-7.7); Basophil# 0.06 X10^3/uL; Basophil% 0.8 % (0-1); Eosinophil# 0.04 X10^3/uL; Eosinophils% 0.5 % (0-5); Hematocrit 44.6 % (40-54); Hemoglobin 14.7 g/dL (13.0-16.5); Lymphocyte % 26.7 % (19-41); Mean Corpuscular Hgb 29.1 pg (27.0-32.0); Mean Corpuscular Volume 88.3 fL (80-94); Mean Platelet Vol. 10.5 fl (6.2-12.0); Monocyte# 0.53 X10^3/uL; Monocyte% 6.7 % (0-10); NRBC Flagged by Analyzer 0 % (0-5); Neutrophil # 5.11 X10^3/uL (2.7-7.7); Neutrophil % 64.9 % (47-70); Platelet Count 263 K/mm3 (150-450); RBC Distribution Width CV 12.6 % (11.6-14.6); Red Blood Count 5.05 M/mm3 (4.6-6.2); White Blood Count 7.9 K/mm3 (4.4-11.0)
[2023-07-25 17:40] LABS: ALB/GLOB Ratio 1.4 RATIO (0.9-2.4); AST(SGOT) 15 U/L (15-37); Alanine Aminotransfer ALT/SGPT 23 U/L (16-61); Albumin, Serum 4.4 g/dL (3.2-5.0); Alkaline Phosphatase 45 U/L (45-117); Anion Gap 8 (5-15); BUN 19 mg/dL (7-18); BUN/Creat Ratio 16.8 RATIO (10-20); Calcium,Total 9.7 mg/dL (8.5-10.1); Chloride 106 mmol/L (98-107); Cholesterol 234 mg/dL (200); Creatinine, Serum 1.13 mg/dL (0.70-1.30); EST Glomerular Filtration Rate 80 mL/min (>60); Est Glom Filt Rate - Afr Amer 97 mL/min (>60); Globulin 3.1 g/dL (2.2-4.2); Glucose 90 mg/dL (74-106); High Density Lipoprotein 41 mg/dL; Potassium 3.7 mmol/L (3.5-5.1); Protein, Total 7.5 g/dL (6.4-8.2); Sodium Level 141 mmol/L (136-145); Triglycerides 384 mg/dL; Very Low Density Lipoprotein 77 mg/dL (5-40)
[2023-07-25 17:42] LABS: Vitamin D,25 Hydroxy 40.7 ng/mL
== END | disposition home or self-care (01) ==
LOC: MTLAB 15:30
PROVIDERS: PCP Family Medicine; Referring Provider Family Medicine; Visit Provider Family Medicine
DX: E78.5 Hyperlipidemia, unspecified (principal); E55.9 Vitamin D deficiency, unspecified
CPT/HCPCS: 36415; 80053; 80061; 82306; 85025

== ENCOUNTER → 2023-12-12 | Outpatient (CLI) | payer BC, SELFPAY ==
[2023-12-12 18:19] LABS: Vitamin D,25 Hydroxy 42.9 ng/mL
[2023-12-12 18:36] LABS: AST(SGOT) 14 U/L (15-37); Alanine Aminotransfer ALT/SGPT 25 U/L (16-61); Albumin, Serum 4.4 g/dL (3.2-5.0); Alkaline Phosphatase 39 U/L (45-117); Anion Gap 7 (5-15); BUN 15 mg/dL (7-18); BUN/Creat Ratio 12.3 RATIO (10-20); Bilirubin, Direct 0.43 mg/dL (0.00-0.30); Calcium,Total 9.5 mg/dL (8.5-10.1); Chloride 103 mmol/L (98-107); Creatinine, Serum 1.22 mg/dL (0.70-1.30); EST Glomerular Filtration Rate 73 mL/min (>60); Est Glom Filt Rate - Afr Amer 88 mL/min (>60); Globulin 3.3 g/dL (2.2-4.2); Glucose 85 mg/dL (74-106); Potassium 3.7 mmol/L (3.5-5.1); Protein, Total 7.7 g/dL (6.4-8.2); Sodium Level 137 mmol/L (136-145)
== END | disposition home or self-care (01) ==
LOC: MFPLAB 15:34
PROVIDERS: PCP Family Medicine; Visit Provider Family Medicine
DX: R17 Unspecified jaundice (principal); E55.9 Vitamin D deficiency, unspecified
CPT/HCPCS: 36415; 80048; 80076; 82306

== ENCOUNTER → 2024-03-26 | Outpatient (CLI) | payer BC, SELFPAY ==
[2024-03-26 12:09] LABS: Absolute Lymphocyte Count 1.28 X10^3/uL (0.83-4.51); Absolute Neutrophil Count 3.4 X10^3/uL (2.0-7.7); Basophil# 0.04 X10^3/uL; Basophil% 0.8 % (0-1); Eosinophil# 0.02 X10^3/uL; Eosinophils% 0.4 % (0-5); Hematocrit 45.7 % (40-54); Lymphocyte # 1.28 X10^3/ul (0.83-4.51); Lymphocyte % 24.8 % (19-41); Mean Corp Hgb Conc 32.8 g/dL (32-36); Mean Corpuscular Hgb 28.3 pg (27.0-32.0); Mean Corpuscular Volume 86.2 fL (80-94); Mean Platelet Vol. 10.9 fl (6.2-12.0); Monocyte# 0.39 X10^3/uL; Monocyte% 7.6 % (0-10); NRBC Flagged by Analyzer 0 % (0-5); Neutrophil # 3.41 X10^3/uL (2.7-7.7); Platelet Count 264 K/mm3 (150-450); RBC Distribution Width CV 12.8 % (11.6-14.6); White Blood Count 5.2 K/mm3 (4.4-11.0)
[2024-03-26 12:45] LABS: ALB/GLOB Ratio 1.3 RATIO (0.9-2.4); AST(SGOT) 6 U/L (15-37); Alanine Aminotransfer ALT/SGPT 14 U/L (16-61); Albumin, Serum 4.4 g/dL (3.2-5.0); Alkaline Phosphatase 37 U/L (45-117); Anion Gap 6 (5-15); BUN 10 mg/dL (7-18); BUN/Creat Ratio 9.3 RATIO (10-20); Calcium,Total 10.2 mg/dL (8.5-10.1); Chloride 105 mmol/L (98-107); Cholesterol 210 mg/dL (200); Creatinine, Serum 1.08 mg/dL (0.70-1.30); EST Glomerular Filtration Rate 84 mL/min (>60); Est Glom Filt Rate - Afr Amer 102 mL/min (>60); Globulin 3.3 g/dL (2.2-4.2); Glucose 105 mg/dL (74-106); High Density Lipoprotein 43 mg/dL; Protein, Total 7.7 g/dL (6.4-8.2); Sodium Level 139 mmol/L (136-145); Triglycerides 242 mg/dL; Very Low Density Lipoprotein 48 mg/dL (5-40)
[2024-03-26 15:01] LABS: Hemoglobin A1c 5.4 % (3.8-5.6)
== END | disposition home or self-care (01) ==
LOC: MFPLAB 10:40
PROVIDERS: PCP Family Medicine; Visit Provider Family Medicine
DX: E78.5 Hyperlipidemia, unspecified (principal); R73.09 Other abnormal glucose
CPT/HCPCS: 36415; 80053; 80061; 83036; 85025

== ENCOUNTER → 2025-05-22 | Outpatient (CLI) | payer BC, SELFPAY ==
[2025-05-22 18:06] LABS: Hematocrit 43.3 % (40-54); Hemoglobin 14.4 g/dL (13.0-16.5); Immature Granulocytes Count 0.010 X10^3/uL (0.0-0.0); Mean Corp Hgb Conc 33.3 g/dL (32-36); Mean Corpuscular Volume 86.3 fL (80-94); Mean Platelet Vol. 10.5 fl (6.2-12.0); NRBC Flagged by Analyzer 0 % (0-5); Platelet Count 235 K/mm3 (150-450); RBC Distribution Width CV 12.8 % (11.6-14.6); RBC Distribution Width SD 39.8 fl (35.1-43.9); Red Blood Count 5.02 M/mm3 (4.6-6.2); White Blood Count 7.6 K/mm3 (4.4-11.0)
[2025-05-22 18:29] LABS: AST(SGOT) 18 U/L (<=37); Alanine Aminotransfer ALT/SGPT 14 U/L (<=46); Albumin, Serum 4.7 g/dL (3.5-5.0); Alkaline Phosphatase 37 U/L (40-129); Anion Gap 11 (5-15); BUN 17 mg/dL (4-19); BUN/Creat Ratio 15.9 RATIO (10-20); Bilirubin, Direct 0.45 mg/dL (0.00-0.30); Calcium,Total 9.8 mg/dL (7.6-11.0); Carbon Dioxide 27.1 mmol/L (21.0-32.0); Chloride 102 mmol/L (98-108); Cholesterol 217 mg/dL (<=200); Globulin 2.7 g/dL (2.2-4.2); Glucose 82 mg/dL (70-99); Low Density Lipoprotein Calc. 141 mg/dL; Potassium 4.0 mmol/L (3.3-5.1); Triglycerides 171 mg/dL; Very Low Density Lipoprotein 34 mg/dL (5-40); cholesterol:hdl ratio screen 4.82
== END | disposition home or self-care (01) ==
LOC: MTLAB 15:28
PROVIDERS: PCP Family Medicine; Referring Provider Family Medicine; Visit Provider Family Medicine
DX: R17 Unspecified jaundice (principal); E78.5 Hyperlipidemia, unspecified
CPT/HCPCS: 36415; 80048; 80061; 80076; 85025